=== PATIENT | female | born 1990 | race Two or more races ===

== ENCOUNTER 2024-04-18 18:42 | Emergency (ER) | payer OTHER ==
[~2024-04-18] VITALS: Ht 165.1 cm; Wt 77.7 kg
[2024-04-18 18:59] VITALS: BP 115/61; PULSE 82; RESP 20; TEMP 97.8; O2SAT 100
== END 2024-04-18 21:32 | disposition left against medical advice (07) ==
LOC: EMS 18:42
DX: S61.210A Laceration without foreign body of right index finger without damage to nail, initial encounter (principal); Z53.21 Procedure and treatment not carried out due to patient leaving prior to being seen by health care provider; W26.8XXA Contact with other sharp object(s), not elsewhere classified, initial encounter; Y93.G1 Activity, food preparation and clean up; Y92.89 Other specified places as the place of occurrence of the external cause; Y99.8 Other external cause status